=== PATIENT | male | born 1990 | race Caucasian/White ===

== ENCOUNTER → 2019-08-22 12:26 | Outpatient (BNVA) | payer BC, SELFPAY | PROVIDERS: Visit Provider Nurse Practitioner | DX: Z13.6 Encounter for screening for cardiovascular disorders (principal); R07.81 Pleurodynia; I51.7 Cardiomegaly | CPT/HCPCS: 71101; 80053; 80061; 81003; 85025 ==

== ENCOUNTER 2022-03-18 08:28 | Outpatient (CLI) | payer BC, SELFPAY ==
[2022-03-18 09:14] LABS: Basophils # 0.1 10^3/uL (0.0-0.1); Eosinophils # 0.2 10^3/uL (0.0-0.8); Eosinophils % 2.3 %; Hematocrit 46.5 % (42.0-52.0); Hemoglobin 15.3 g/dL (11.7-16.6); Lymphocytes # 2.7 10^3/uL (0.8-4.8); Lymphocytes % 26.9 %; Mean Corpuscular HGB Conc 32.9 g/dL (30.0-36.0); Mean Corpuscular Hemoglobin 28.3 pg (28.0-34.0); Mean Platelet Volume 9.1 fL (7.4-10.4); Monocytes # 0.7 10^3/uL (0.2-0.9); Neutrophils # 6.11 10^3/uL (1.8-7.7); Neutrophils % 61.9 %; Nucleated Red Blood Cells % 0 %; Platelet Count 325 10^3/cmm (130-400); Red Blood Count 5.41 10^6/uL (4.1-5.3); White Blood Count 9.9 10^3/uL (4.0-10.0)
[2022-03-18 10:01] LABS: Alanine Aminotransferase 31 U/L (0-41); Albumin Level 4.5 g/dL (3.5-5.2); Alkaline Phosphatase 91 U/L (40-130); Anion Gap 16.5 (5-19); Aspartate Amino Transferase 18 U/L (0-40); Blood Urea Nitrogen 14 mg/dL (6-20); Calcium 9.5 mg/dL (8.5-10.5); Carbon Dioxide 23 mmol/L (22-29); Chloride 102 mmol/L (98-107); Chol HDL Ratio 4.03 mg/dL (1.0-5.00); Cholesterol 149 mg/dL (0-200); Globulin 2.5 g/dL (1.3-4.6); Glomerular Filtration Rate 157.1 mL/min (90-130); Glucose 99 mg/dL (65-115); HDL Cholesterol 37 mg/dL (60-100); LDL Cholesterol Calculated 60 mg/dL (50-129); LDL HDL Ratio 1.62 RATIO (0.00-3.22); Osmolality Calculated 285 mOsm/kg (285-295); Potassium 4.5 mmol/L (3.5-5.1); Sodium 137 mmol/L (136-145); Thyroid Stimulating Hormone 1.38 uIU/mL (0.27-4.20); Total Bilirubin 0.3 mg/dL (0.15-1.2); Triglycerides 261 mg/dL (0-150)
== END 2022-03-18 08:29 | disposition home or self-care (01) ==
LOC: LAB 08:31
PROVIDERS: Visit Provider Family Medicine
DX: I10 Essential (primary) hypertension (principal); F17.228 Nicotine dependence, chewing tobacco, with other nicotine-induced disorders; Z76.89 Persons encountering health services in other specified circumstances; E66.01 Morbid (severe) obesity due to excess calories
CPT/HCPCS: 36415; 80053; 80061; 84443; 85025

== ENCOUNTER → 2023-12-20 17:39 | Outpatient (BNVA) | payer SELFPAY | PROVIDERS: PCP Family Medicine; Visit Provider Emergency Medicine | DX: S99.911A Unspecified injury of right ankle, initial encounter (principal); X58.XXXA Exposure to other specified factors, initial encounter | CPT/HCPCS: 73610 ==

== ENCOUNTER 2024-03-30 14:14 | Inpatient (IN) | payer OTHER, SELFPAY ==
[2024-03-30] VITALS (14 sets, daily range): BP systolic 92–139; BP diastolic 45–84; PULSE 88–114; RESP 18–33; TEMP 36.6–38.1; O2SAT 90–98; BMI 46.7
[2024-03-30 14:49] LABS: Basophils # 0.1 10^3/uL (0.0-0.1); Basophils % 0.5 %; Eosinophils # 0.2 10^3/uL (0.0-0.8); Hematocrit 41.4 % (37-53); Lymphocytes # 2.2 10^3/uL (0.8-4.8); Lymphocytes % 10.4 %; Mean Corpuscular HGB Conc 32.6 g/dL (30-55); Mean Corpuscular Volume 85.7 fl (82-101); Mean Platelet Volume 8.5 fL (7.4-10.4); Monocytes # 1.7 10^3/uL (0.2-0.9); Monocytes % 8.3 %; Neutrophils % 79.3 %; Nucleated Red Blood Cells % 0 %; Platelet Count 293 10^3/cmm (157-399); Red Blood Count 4.83 10^6/uL (3.85-5.65); White Blood Count 20.77 10^3/uL (3.29-11.43)
[2024-03-30 15:07] LABS: Alanine Aminotransferase 17 U/L (0-41); Albumin Level 3.9 g/dL (3.5-5.2); Alkaline Phosphatase 68 U/L (40-130); Anion Gap 17.1 (5-19); Aspartate Amino Transferase 9 U/L (0-40); Blood Urea Nitrogen 12 mg/dL (6-20); Calcium 8.8 mg/dL (8.5-10.5); Carbon Dioxide 21 mmol/L (22-29); Chloride 99 mmol/L (98-107); Globulin 3.6 g/dL (1.3-4.6); Glomerular Filtration Rate 129.9 mL/min (90-130); Glucose 108 mg/dL (65-115); Osmolality Calculated 276 mOsm/kg (285-295); Potassium 4.1 mmol/L (3.5-5.1); Sodium 133 mmol/L (136-145); Total Bilirubin 0.8 mg/dL (0.15-1.2); Total Protein 7.5 g/dL (6.6-8.7)
--- NOTE | 2024-03-30 15:51 | CTR_ITS ---
PROCEDURE INFORMATION: Exam: CT Abdomen And Pelvis With Contrast Exam date and time: 03/30/2024 4:09 PM Age: 34 years old Clinical indication: Pain; Other: Buttock/perirectal abscess TECHNIQUE: Imaging protocol: Computed tomography of the abdomen and pelvis with contrast. Radiation optimization: All CT scans at this facility use at least one of these dose optimization techniques: automated exposure control; mA and/or kV adjustment per patient size (includes targeted exams where dose is matched to clinical indication); or iterative reconstruction. Contrast material: OMNI 350; Contrast volume: 100 ml; Contrast route: INTRAVENOUS (IV); COMPARISON: CR XR ribs LT mn 3V w CXR1V [id number] 08/22/2019 12:46 PM RADIATION DOSE METRICS: Total DLP (mGy-cm): 1546.13 FINDINGS: Lungs: Lung bases are clear. No pleural effusion. Liver: The liver demonstrates diffuse fatty infiltration. No evidence of liver mass. Gallbladder and biliary ducts: Normal. No calcified stones. No ductal dilation. Pancreas: Normal. No ductal dilation. Spleen: Normal. No splenomegaly. Adrenal glands: Normal. No mass. Kidneys and ureters: Normal. No hydronephrosis. Stomach and bowel: Unremarkable. No obstruction. No mucosal thickening. Appendix: No evidence of appendicitis. Intraperitoneal space: See Soft tissues finding. Vasculature: Unremarkable. No abdominal aortic aneurysm. Lymph nodes: Unremarkable. No enlarged lymph nodes. Urinary bladder: Unremarkable as visualized. Reproductive: Unremarkable as visualized. Bones/joints: Unremarkable. No acute fracture. Soft tissues: There is a 5 cm diameter rounded abscess lying just below the level of the anus within the medial aspect of the left buttock. There is surrounding cellulitis. The abscess contains air and fluid. The abscess does not extend into the pelvic cavity. CT/CT abdomen pelvis w con* [id number] IMPRESSION: 5 cm left perianal abscess with surrounding cellulitis
--- NOTE | 2024-03-30 15:53 | W.ED.SKABFB ---
HPI - Skin/Abscess/Foreign Bdy General: Chief complaint: Skin/Abscess/Foreign Body Stated complaint: Walk-In--Possible absess in rectal area Time Seen by Provider: 03/30/24 15:36 Source: patient Mode of arrival: ambulatory Limitations: no limitations History of Present Illness: Patient is a 34-year-old male here after he was evaluated [facility] walk-in clinic and referred to the emergency department for evaluation of an infection/abscess to his buttock/perineal region. Patient states he began having pain approximately 2 to 3 days ago. He states bowel movements are painful. He is not having any systemic symptoms such as fevers, chills, body aches, or vomiting. He does arrive slightly tachycardic and febrile with a fever of 100.6. He is not a diabetic. Patient is morbidly obese with BMI of 46.8. MD complaint: abscess/boil Onset (ago): day(s) Tetanus up to date: yes Location: buttocks and genitals Severity: moderate Pain Consistency: constant Relieving factors: none Exacerbating factors: none Context: none Associated symptoms: Deny chills, fever(s), nausea or vomiting Treatments prior to arrival: none Related Data Home Medications Medication Instructions Recorded Confirmed escitalopram oxalate 10 mg tablet 10 mg PO DAILY 03/30/24 03/30/24 lisinopril 10 1 tab PO DAILY 03/30/24 03/30/24 mg-hydrochlorothiazide 12.5 mg tablet Allergies Allergy/AdvReac Type Severity Reaction Status Date / Time No Known Allergies Allergy Verified 03/30/24 15:21 Review of Systems Const: Denies: fever(s), chills, body aches, fatigue or malaise Card: Denies: chest pain Resp: Denies: dyspnea GI: Reports: pain on defecation and rectal pain; Denies: abdominal pain, nausea, vomiting, diarrhea, hematochezia or melena : Denies: flank pain, difficulty urinating, dysuria, urinary frequency, urinary urgency or urinary hesitancy Musc: Denies: neck pain, back pain, extremity pain or joint pain Skin/Breast: Denies: rash Neuro: Denies: headache(s), numbness in extremities, weakness in extremities or sensory changes [facility] 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 Mother Diabetes Denies family history of CAD (coronary artery disease) Clotting disorder Dementia Hyperlipidemia Psychiatric illness Chronic kidney disease (CKD) Suicide Anesthesia complication Bleeding disorder Family history of premature coronary artery disease Lung disease Cancer Hypertension Stroke Social History Smoking and tobacco/nicotine status: unknown if used tobacco/nicotine Second hand smoke exposure: No Alcohol intake: current Alcohol intake frequency: holidays/special occasions only Substance/Drug Use: never Adopted: No Caregiver/support person: No Lives independently: Yes Household members: other Details: [place] Housing: House Marital status: Single Number of children: 1 Highest education level completed: High School Graduate service: No Current occupational status: employed Current occupation: [employer] Current occupational exposures/hazards: No Pets and animals: Yes Leisure activites: hunting and fishing Sexually active: Yes Do you think of yourself as: Straight/Heterosexual Current gender identity: Male Special avila needs: No Agree to transfusion: Yes Physical Exam Const: COMMON NORMALS: no acute distress, patient oriented x3, no limitations, alert and well nourished GENERAL APPEARANCE: cooperative NUTRITIONAL APPEARANCE: obese morbidly obese (BMI 46.8) ORIENTATION/CONSCIOUSNESS: Yes awake, Yes oriented to person, Yes oriented to place and Yes oriented to time Resp: COMMON NORMALS: normal respiratory effort and clear to auscultation bilaterally AUSCULTATION: clear to auscultation bilaterally Cardio: COMMON NORMALS: regular rate and regular rhythm RATE: regular rate RHYTHM: regular rhythm GI: COMMON NORMALS: Normal to inspection, nondistended, normoactive bowel sounds present, Soft to palpation and non-tender PALPATION: Yes Soft to palpation OTHER: patient with a large amount of edema/induration and probable abscess formation along L buttock/gluteal cleft; he did have a small seed tick attached to this area that was removed; small amount of hemorrhage (dime sized) were abscess turns fluctuant; he does not have symptoms onto scrotum or any scrotal involvement : COMMON NORMALS: Yes no CVA tenderness BLADDER/KIDNEY EXAM: Yes no CVA tenderness Back/Pelvis: COMMON NORMALS: no CVA tenderness and thoracic and lumbar spine normal to inspection Extremity: GENERAL: Yes normal exam except as noted Neuro: COMMON NORMALS: patient oriented x3, moves all extremities, no focal motor deficits, no sensory deficits noted and gait normal SENSORIUM/ORIENTATION: Yes alert, Yes oriented to person, Yes oriented to place and Yes oriented to time Skin: NARRATIVE SKIN EXAM: see above Course Vital Signs: Vital signs: Vital Signs Temperature 100.6 F H 03/30/24 15:15 Pulse Rate 106 H 03/30/24 15:15 Respiratory Rate 18 03/30/24 16:30 Blood Pressure 129/64 03/30/24 15:15 Pulse Oximetry 94 03/30/24 15:15 Oxygen Delivery Me thod Room Air 03/30/24 15:15 MDM - Skin/Abscess/Foreign Bdy Medicial Decision Making Patient is a nice 34-year-old male here for a 5 cm left perianal abscess. He is mildly tachycardic and febrile with a white count of 20.7. He has a normal lactate. CRP is 143. Blood cultures obtained and he was started on IV Zosyn as well as a IBW fluid bolus. I have spoken to Dr. Hernandez who will admit for drainage/continued antibiotics. Medical Records I reviewed the patient's medical records. Lab Data I reviewed the patient's lab results. 03/30/24 14:41 03/30/24 14:41 Radiology Impressions Abdomen/Pelvis CT 03/30/24 15:51 IMPRESSION: 5 cm left perianal abscess with surrounding cellulitis Laboratory Results WBC 20.77 10^3/uL (3.29-11.43) H 03/30/24 14:41 RBC 4.83 10^6/uL (3.85-5.65) 03/30/24 14:41 Hgb 13.50 g/dL (11.27-16.99) 03/30/24 14:41 Hct 41.4 % (37-53) 03/30/24 14:41 MCV 85.7 fl (82-101) 03/30/24 14:41 MCH 28.0 pg (27-33) 03/30/24 14:41 MCHC 32.6 g/dL (30-55) 03/30/24 14:41 RDW 14.0 % (12.1-15.1) 03/30/24 14:41 Plt Count 293 10^3/cmm (157-399) 03/30/24 14:41 MPV 8.5 fL (7.4-10.4) 03/30/24 14:41 Neut % (Auto) 79.3 % 03/30/24 14:41 Lymph % (Auto) 10.4 % 03/30/24 14:41 [place] % (Auto) 8.3 % 03/30/24 14:41 Eos % (Auto) 1.0 % 03/30/24 14:41 Baso % (Auto) 0.5 % 03/30/24 14:41 Neut # (Auto) 16.50 10^3/uL (1.8-7.7) H 03/30/24 14:41 Lymph # (Auto) 2.2 10^3/uL (0.8-4.8) 03/30/24 14:41 [place] # (Auto) 1.7 10^3/uL (0.2-0.9) H 03/30/24 14:41 Eos # (Auto) 0.2 10^3/uL (0.0-0.8) 03/30/24 14:41 Baso # (Auto) 0.1 10^3/uL (0.0-0.1) 03/30/24 14:41 Nucleated RBC % (auto) 0 % 03/30/24 14:41 Nucleated RBCs # 0.0 /100WBC 03/30/24 14:41 Sodium 133 mmol/L (136-145) L 03/30/24 14:41 Potassium 4.1 mmol/L (3.5-5.1) 03/30/24 14:41 Chloride 99 mmol/L (98-107) 03/30/24 14:41 Carbon Dioxide 21 mmol/L (22-29) L 03/30/24 14:41 Anion Gap 17.1 (5-19) 03/30/24 14:41 BUN 12 mg/dL (6-20) 03/30/24 14:41 Creatinine 0.7 mg/dL (0.7-1.2) 03/30/24 14:41 GFR Calculation 129.9 mL/min (90-130) 03/30/24 14:41 Glucose 108 mg/dL (65-115) 03/30/24 14:41 Calculated Osmolality 276 mOsm/kg (285-295) L 03/30/24 14:41 Lactic Acid 0.8 mmol/L (0.5-2.2) 03/30/24 14:41 Calcium 8.8 mg/dL (8.5-10.5) 03/30/24 14:41 Total Bilirubin 0.8 mg/dL (0.15-1.2) 03/30/24 14:41 AST 9 U/L (0-40) 03/30/24 14:41 ALT 17 U/L (0-41) 03/30/24 14:41 Alkaline Phosphatase 68 U/L (40-130) 03/30/24 14:41 C-Reactive Protein 143.0 mg/L (0.0-4.9) H 03/30/24 14:41 Total Protein 7.5 g/dL (6.6-8.7) 03/30/24 14:41 Albumin 3.9 g/dL (3.5-5.2) 03/30/24 14:41 Globulin 3.6 g/dL (1.3-4.6) 03/30/24 14:41 All radiology interpretation(s) finalized by discharge Discharge Plan Discharge Patient Disposition: Admitted As Inpatient Clinical Impression: Abscess, perianal Condition: Stable Prescriptions: No Action lisinopril-hydrochlorothiazide 10-12.5 mg tablet 1 tab PO DAILY escitalopram oxalate 10 mg tablet 10 mg PO DAILY Referrals: [facility] [Other] Geronimo Razo DO [Primary Care Provider] - Coding Level of Care Code ED Product Development Ecologist for Lissy Hutson
[2024-03-30 16:19] LABS: Lactic Sepsis W/Reflex 0.8 mmol/L (0.5-2.2)
[2024-03-30] MEDS: morphine 4 mg/mL SDV 1 mL IVP (16:30)
[2024-03-30] MEDS: sodium chloride 0.9% 2,328 ML 2328 ML IV (16:30)
[2024-03-30] MEDS: ondansetron 2 mg/ML SDV 2 mL 4 MG IVP (16:31)
[2024-03-30] MEDS: piperacillin-tazobactam 3.375 GM in sodium chloride 0.9% (plus) 50 ML IV (16:43)
[2024-03-30] MEDS: lactated ringers 1,000 ML 75 ML IV (18:39)
[2024-03-30] MEDS: fentaNYL 50 mcg/mL INJ 2mL IVP (19:17)
[2024-03-30 19:19] LABS: Charge for UA Resulting for Rev
[2024-03-30 19:43] LABS: Bilirubin Urine Negative (Negative); Blood Urine Negative (Negative); Glucose Urine UA Negative (Normal); Ketones Urine Negative (Negative); Leukocyte Esterase Urine Negative (Negative); Nitrate Urine Negative (Negative); Protein Urine Trace (Negative); Urine Appearance Clear (CLEAR); Urine Color Yellow (Yellow)
[2024-03-30 19:48] LABS: Bacteria Urine None Seen /hpf; Hyaline Casts Urine 0-4 /lpf; RBC Urine 0-2 /hpf (0-2); Squamous Epithelial Cell Urine 0-5 /hpf (0-5); WBC Urine 0-5 /hpf (0-5)
--- NOTE | 2024-03-30 19:55 | P.HP_ITS ---
Providers/Chief Complaint 2 Admitting Physician: North Ling MD Primary Care Provider: Geronimo Razo DO Chief Complaint: Walk-In--Possible absess in rectal area History of Present Illness Isak Peters is a 34 year old male relatively healthy, obese, who presents with a perianal abscess. CT scan demonstrated a 5 cm abscess with locules of air in the subcutaneous tissues. Patient denies any fevers. He noticed the abscess several days ago. This is the first episode. Denies any prior GI issues. Patient was initially tachycardic and had a leukocytosis greater than 20,000. He did respond to IV fluid resuscitation. Antibiotics were started. 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 Mother Diabetes Denies family history of CAD (coronary artery disease) Clotting disorder Dementia Hyperlipidemia Psychiatric illness Chronic kidney disease (CKD) Suicide Anesthesia complication Bleeding disorder Family history of premature coronary artery disease Lung disease Cancer Hypertension Stroke Social History Smoking and tobacco/nicotine status: unknown if used tobacco/nicotine Second hand smoke exposure: No Alcohol intake: current Alcohol intake frequency: holidays/special occasions only Substance/Drug Use: never Adopted: No Caregiver/support person: No Lives independently: Yes Household members: other Details: fiancee Housing: House Marital status: Single Number of children: 1 Highest education level completed: High School Graduate service: No Current occupational status: employed Current occupation: [employer] Current occupational exposures/hazards: No Pets and animals: Yes Leisure activites: hunting and fishing Sexually active: Yes Do you think of yourself as: Straight/Heterosexual Current gender identity: Male Special avila needs: No Agree to transfusion: Yes Vitals/I&O/Wt Last Vital Signs Temp 100.3 F H 03/30/24 19:15 Pulse 88 03/30/24 19:15 Resp 18 03/30/24 19:17 BP 139/74 03/30/24 19:15 Pulse Ox 98 03/30/24 19:17 O2 Del Method Nasal Cannula 03/30/24 19:15 O2 Flow Rate 3 03/30/24 19:15 03/30/24 03/30/24 03/30/24 06:59 14:59 22:59 Intake Total 50 / 50 Balance 50 / 50 Weight last 48 hrs Weight 345 lb Physical Exam 2 Narrative: Chest: Unlabored breathing room air. No lymphadenopathy. Heart: Regular rate and rhythm. Abdomen: Soft, nontender, nondistended. No masses or lymphadenopathy. Perineum: perianal abscess with surrounding cellulitis Data 03/30/24 14:41 03/30/24 14:41 Micro: Microbiology 03/30/24 17:01 Blood Culture - Preliminary Blood SPECIMEN COLLECTED 03/30/24 16:52 Blood Culture - Preliminary Blood SPECIMEN COLLECTED A&P Assessment and plan (1) Abscess, perianal: Plan 34-year-old male who presents with a perianal abscess. I have explained the risks and benefits of an exam under anesthesia of the rectum, incision and drainage of perianal abscess, possible seton placement, possible fistulotomy. He agrees to proceed. Will then sent to the floor for continued resuscitation and antibiotics. Attestations 2 Medical Necessity Statement*: Treatment undergoing for perianal abscess Coding Level of Care Code 26281 Diagnoses Abscess, perianal K61.0 Time Spent (min) 30
[2024-03-30 19:57] LABS: Specific Gravity, Urine 1.047 (1.005-1.030)
--- NOTE | 2024-03-30 21:04 | W.PM.BPON ---
Date of Procedure: 03/30/24 Surgeon: North Ling MD Separations Scientist(s): None Procedure(s) performed: Exam under anesthesia of the rectum and perineum. Incision and drainage of perianal abscess. Findings of the procedure(s): Perianal abscess 5 cm cavity. Estimated blood loss: Less than 10 cc. Specimen(s) removed: Ultrasound from perianal abscess Post-operative diagnosis: Perianal abscess
--- NOTE | 2024-03-30 21:06 | ANES.PREANE2 ---
Pre-Anesthetic Assessment Height/Weight: Height 1.83 m Weight 156.489 kg Temp Pulse Resp BP Pulse Ox O2 Del Method O2 Flow Rate 100.3 F H 88 18 139/74 98 Nasal Cannula 3 03/30/24 19:15 03/30/24 19:15 03/30/24 19:17 03/30/24 19:15 03/30/24 19:17 03/30/24 19:15 03/30/24 19:15 Operation Date: 03/30/24 19:00 Proposed Procedures p Perirectal Abscess(Not Applicable) - North Ling MD Social No alcohol and No tobacco Exam alert, oriented x 3, clear to auscultation bilaterally and regular rate & rhythm Airway Submandibular: within normal limits Cervical ROM: Other (limited by cervical girth ) Mallampati: Class II Pulmonary Sleep Apnea Metabolic Morbid Obesity Anesthetic Plan ASA status: 4E Anesthesia: General Medications/Allergies Home Medications Medication Instructions Recorded Confirmed Last Taken Type escitalopram oxalate 10 mg tablet 10 mg PO DAILY 03/30/24 03/30/24 Unknown History lisinopril 10 1 tab PO DAILY 03/30/24 03/30/24 Unknown History mg-hydrochlorothiazide 12.5 mg tablet Allergies Allergy/AdvReac Type Severity Reaction Status Date / Time No Known Allergies Allergy Verified 03/30/24 15:21 Current Medications Generic Name Dose Route Start Last Admin Trade Name Freq PRN Reason Stop Dose Admin Lactated Ringer's 1,000 mls @ 75 mls/hr 03/30/24 17:30 03/30/24 18:39 Lactated Ringers IV 75 mls/hr .[id number] CHAN Administration PFSH 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 Mother Diabetes Denies family history of CAD (coronary artery disease) Clotting disorder Dementia Hyperlipidemia Psychiatric illness Chronic kidney disease (CKD) Suicide Anesthesia complication Bleeding disorder Family history of premature coronary artery disease Lung disease Cancer Hypertension Stroke Social History Smoking and tobacco/nicotine status: unknown if used tobacco/nicotine Second hand smoke exposure: No Alcohol intake: current Alcohol intake frequency: holidays/special occasions only Substance/Drug Use: never Adopted: No Caregiver/support person: No Lives independently: Yes Household members: other Details: ebenezer Housing: House Marital status: Single Number of children: 1 Highest education level completed: High School Graduate service: No Current occupational status: employed Current occupation: [employer] Current occupational exposures/hazards: No Pets and animals: Yes Leisure activites: hunting and fishing Sexually active: Yes Do you think of yourself as: Straight/Heterosexual Current gender identity: Male Special avila needs: No Agree to transfusion: Yes Data Anesthesia 03/30/24 14:41 03/30/24 14:41 Short CBC 03/30/24 Range/Units 14:41 WBC 20.77 H (3.29-11.43) 10^3/uL Hgb 13.50 (11.27-16.99) g/dL Hct 41.4 (37-53) % MCV 85.7 (82-101) fl Plt Count 293 (157-399) 10^3/cmm Neut % (Auto) 79.3 % Neut # (Auto) 16.50 H (1.8-7.7) 10^3/uL BMP 03/30/24 14:41 Sodium 133 L Potassium 4.1 Chloride 99 Carbon Dioxide 21 L BUN 12 Creatinine 0.7 Glucose 108 Calcium 8.8 Liver Function 03/30/24 Range/Units 14:41 Total Bilirubin 0.8 (0.15-1.2) mg/dL AST 9 (0-40) U/L ALT 17 (0-41) U/L Alkaline Phosphatase 68 (40-130) U/L Albumin 3.9 (3.5-5.2) g/dL Urine 03/30/24 Range/Units 17:46 Urine Color Yellow (Yellow) Urine Appearance Clear (CLEAR) Urine pH 6.0 (5-7) Ur Specific [place] 1.047 H (1.005-1.030) Urine Protein Trace A (Negative) Urine Glucose (UA) Negative (Normal) Urine Ketones Negative (Negative) Urine Nitrate Negative (Negative) Urine Bilirubin Negative (Negative) Ur Leukocyte Esterase Negative (Negative) Urine RBC 0-2 (0-2) /hpf Urine WBC 0-5 (0-5) /hpf Coags 03/30/24 14:41 C-Reactive Protein 143.0 H Microbiology 03/30/24 17:01 Blood Culture - Preliminary Blood SPECIMEN COLLECTED 03/30/24 16:52 Blood Culture - Preliminary Blood SPECIMEN COLLECTED Cardiac Studies: No Data to Display
[2024-03-31] VITALS (9 sets, daily range): BP systolic 100–172; BP diastolic 51–72; PULSE 74–100; RESP 18–20; TEMP 36.7–36.9; O2SAT 90–96; BMI 45.7
[2024-03-31] MEDS: piperacillin-tazobactam 4.5 GM in sodium chloride 0.9% (plus) 50 ML IV ×3 (01:03→16:52)
[2024-03-31 08:13] LABS: Basophils % 0.1 %; Hematocrit 39.8 % (37-53); Lymphocytes % 4.8 %; Mean Corpuscular HGB Conc 31.7 g/dL (30-55); Mean Corpuscular Volume 88.4 fl (82-101); Mean Platelet Volume 8.7 fL (7.4-10.4); Monocytes # 0.7 10^3/uL (0.2-0.9); Monocytes % 3.2 %; Neutrophils # 18.69 10^3/uL (1.8-7.7); Neutrophils % 91.3 %; Nucleated Red Blood Cells % 0 %; Platelet Count 271 10^3/cmm (157-399); White Blood Count 20.49 10^3/uL (3.29-11.43)
[2024-03-31 08:34] LABS: Anion Gap 15.4 (5-19); Blood Urea Nitrogen 15 mg/dL (6-20); Calcium 8.3 mg/dL (8.5-10.5); Carbon Dioxide 22 mmol/L (22-29); Chloride 102 mmol/L (98-107); Glomerular Filtration Rate 155.2 mL/min (90-130); Glucose 170 mg/dL (65-115); Osmolality Calculated 285 mOsm/kg (285-295); Potassium 4.4 mmol/L (3.5-5.1); Sodium 135 mmol/L (136-145)
[2024-03-31 09:03] LABS: Creatinine Clr Calc Pharmacy 265.9584
[2024-03-31] MEDS: oxyCODONE 5 mg IR Tab/Cap PO ×2 (09:03→21:31)
--- NOTE | 2024-03-31 12:17 | ANE.PACU2 ---
Inpatient post-anesthesia follow up: Airway intact: Yes Vital signs: Temperature 98.1 F Pulse Rate 79 Respiratory Rate 18 Blood Pressure 172/71 Pulse Oximetry 96 Oxygen Delivery Me thod Room Air Oxygen Flow Rate 4 Fraction of Inspir ed Oxygen Hydration adequate: Yes Nausea and vomiting: No Pain level: controlled Mental status: Baseline (appropriate for post anesthesia )
--- NOTE | 2024-03-31 12:32 | P.PN_ITS ---
Subjective 2 Subjective: Feels much better. No fevers. Pain has decreased significantly. Able to lie on his back. Vitals/I&O/Wt Last Vital Signs Temp 98.1 F 03/31/24 12:00 Pulse 79 03/31/24 12:00 Resp 18 03/31/24 12:00 BP 172/71 03/31/24 12:00 Pulse Ox 96 03/31/24 12:00 O2 Del Method Room Air 03/31/24 12:00 O2 Flow Rate 4 03/30/24 21:46 03/30/24 03/31/24 03/31/24 22:59 06:59 14:59 Intake Total 2478 / 2478 50 / 2528 360 / 360 Output Total Balance 2458 / 2458 50 / 2508 360 / 360 Weight last 48 hrs Weight 335 lb 3.2 oz Weight 337 lb 1.6 oz Weight 345 lb Physical Exam 2 Narrative: Chest: Unlabored breathing room air. No lymphadenopathy. Heart: Regular rate and rhythm. Abdomen: Soft, nontender, nondistended. No masses or lymphadenopathy. Perineum: left buttock with packing in place. Changed. No purulence. Re-packed. Cellulitis improved. Data 03/31/24 08:06 03/31/24 08:06 Micro: Microbiology 03/30/24 20:55 Gram Stain - Final Other Source 03/30/24 17:01 Blood Culture - Preliminary Blood SPECIMEN COLLECTED 03/30/24 16:52 Blood Culture - Preliminary Blood SPECIMEN COLLECTED A&P Assessment and plan (1) Abscess, perianal: Plan 34-year-old male who presented with a perianal abscess. Postoperative day 1 from incision and drainage and rectal exam under anesthesia. Packing was changed today. I will change it tomorrow. Given his leukocytosis, size of the cavity, and moderate pain control we will aim for discharge on Tuesday. Attestations 2 Medical Necessity Statement*: Perianal abscess with persistent leukocytosis. Pain control is an issue. Wound care needs to be done by physician one more day. Coding Level of Care Code 41903 Diagnoses Abscess, perianal K61.0 Time Spent (min) 30
[2024-03-31] MEDS: ESCITALOPRAM 10 MG TAB 1 EACH PO (12:55)
--- NOTE | 2024-03-31 16:00 | PC.NURSE ---
dr grewal changed drsg to perirectal absess this morning.requested that he change the drsgs-not staff-if possible
[2024-04-01] VITALS: BP 149/71; PULSE 101; RESP 20; TEMP 36.5; O2SAT 93
[2024-04-01] MEDS: piperacillin-tazobactam 4.5 GM in sodium chloride 0.9% (plus) 50 ML IV ×2 (01:58→09:03)
[2024-04-01 04:00] VITALS: BP 119/58; PULSE 76; RESP 20; TEMP 36.7; O2SAT 95
[2024-04-01 07:14] VITALS: BP 146/65; PULSE 65; RESP 17; TEMP 36.4; O2SAT 95
[2024-04-01] MEDS: LISINOPRIL PO (09:02)
[2024-04-01] MEDS: HCTZ PO (09:02)
[2024-04-01] MEDS: ESCITALOPRAM 10 MG TAB 1 EACH PO (09:02)
[2024-04-01 09:53] LABS: Basophils # 0.1 10^3/uL (0.0-0.1); Basophils % 0.5 %; Eosinophils # 0.2 10^3/uL (0.0-0.8); Hematocrit 39.8 % (37-53); Lymphocytes % 17.6 %; Mean Corpuscular HGB Conc 32.2 g/dL (30-55); Mean Corpuscular Hemoglobin 28.2 pg (27-33); Mean Corpuscular Volume 87.7 fl (82-101); Mean Platelet Volume 8.8 fL (7.4-10.4); Monocytes # 1.1 10^3/uL (0.2-0.9); Monocytes % 6.2 %; Neutrophils # 12.47 10^3/uL (1.8-7.7); Neutrophils % 73.9 %; Nucleated Red Blood Cells % 0 %; Platelet Count 312 10^3/cmm (157-399); Red Blood Count 4.54 10^6/uL (3.85-5.65); Red Cell Distribution Width 13.8 % (12.1-15.1); White Blood Count 16.88 10^3/uL (3.29-11.43)
[2024-04-01 11:16] VITALS: BP 144/75; PULSE 84; RESP 18; TEMP 37; O2SAT 95
[2024-04-01] MEDS: oxyCODONE 5 mg IR Tab/Cap PO (11:16)
--- NOTE | 2024-04-01 12:11 | P.PN_ITS ---
Subjective 2 Subjective: Pain much better controlled No fevers Packing changed WBC down Vitals/I&O/Wt Last Vital Signs Temp 98.6 F 04/01/24 11:16 Pulse 84 04/01/24 11:16 Resp 18 04/01/24 11:16 BP 144/75 04/01/24 11:16 Pulse Ox 95 04/01/24 11:16 O2 Del Method Room Air 04/01/24 11:16 O2 Flow Rate 4 03/30/24 21:46 03/31/24 04/01/24 04/01/24 22:59 06:59 14:59 Intake Total 1050 / 1820 50 / 1870 480 / 480 Balance 1050 / 1820 50 / 1870 480 / 480 Weight last 48 hrs Weight 338 lb 3.2 oz Weight 335 lb 3.2 oz Weight 337 lb 1.6 oz Weight 345 lb Physical Exam 2 Narrative: Chest: Unlabored breathing room air. No lymphadenopathy. Heart: Regular rate and rhythm. Abdomen: Soft, nontender, nondistended. No masses or lymphadenopathy. Perineum: perianal I&D cavity decreased in size. Packing changed. Surrounding cellulitis improved Data 04/01/24 09:47 03/31/24 08:06 Micro: Microbiology 03/30/24 17:01 Blood Culture - Preliminary Blood NEGATIVE TO DATE 03/30/24 16:52 Blood Culture - Preliminary Blood NEGATIVE TO DATE 03/30/24 20:55 Gram Stain - Final Other Source A&P Assessment and plan (1) Abscess, perianal: Plan 34-year-old male status post exam under anesthesia of the rectum and perineum, incision and drainage of perianal abscess. White count is down, no fevers, pain is well-tolerated. Patient feels ready to go home. I have changed the packing today. I will discharge him on a short course of antibiotics to treat his cellulitis, patient should remove the packing tomorrow and he does not need to replace it. I have instructed him to do sitz bath's daily and follow-up with me in clinic in 2 weeks. Patient can take [id number] meds for pain control. Attestations 2 Medical Necessity Statement*: perianal abscess treatment Coding Level of Care Code 56048 Diagnoses Abscess, perianal K61.0 Time Spent (min) 30
--- NOTE | 2024-04-01 12:15 | PM.DCS ---
Discharge Providers Date of Admission: 03/30/24 16:56 Date of Discharge: April 01, 2024 Attending Provider at Admission: North Ling MD Attending Provider at Discharge: North Ling MD Primary Care Provider: Geronimo Razo DO Diagnoses at Discharge Discharge Diagnosis (1) Abscess, perianal: Details from hospital stay: 34-year-old male who underwent an exam under anesthesia of the perineum and rectum, incision and drainage of perianal abscess. Patient required postoperative hospital stay for pain control, wound care, IV antibiotics. Currently stable for discharge. Patient instructed to do daily sitz bath's, finish a 5-day course of antibiotics to treat for cellulitis. And follow-up in general surgery clinic in 2 weeks. Status: Acute Reason for Visit Reason for Visit: Walk-In--Possible absess in rectal area Brief History: Incision and drainage of perianal abscess Hospital Course Hospital Course This patient came in with a perianal abscess. Required an exam under anesthesia of the rectum and perineum, incision and drainage of perianal abscess. Patient stayed in the hospital 2 nights for pain control, IV antibiotics, wound care. Physical Exam Narrative: Chest: Unlabored breathing room air. No lymphadenopathy. Heart: Regular rate and rhythm. Abdomen: Soft, nontender, nondistended. No masses or lymphadenopathy. Perineum: perianal abscess cavity was drained, cavity decreased in size, surrounding cellulitis improved Discharge Data Studies Completed and Pending Completed Studies During Hospitalization Category Date Time Status CT abdomen pelvis w con* [id number] Stat Cat Scan 03/30/24 15:51 Completed Pending at discharge Category Date Time Status Anaerobic Culture Routine Lab 03/30/24 20:55 Results Blood Culture Stat Lab 03/30/24 17:01 Results Wound Culture and Gram Stain Routine Lab 03/30/24 20:55 Results Radiology Impressions Abdomen/Pelvis CT 03/30/24 15:51 IMPRESSION: 5 cm left perianal abscess with surrounding cellulitis Laboratory Results WBC 16.88 10^3/uL (3.29-11.43) H 04/01/24 09:47 RBC 4.54 10^6/uL (3.85-5.65) 04/01/24 09:47 Hgb 12.80 g/dL (11.27-16.99) 04/01/24 09:47 Hct 39.8 % (37-53) 04/01/24 09:47 MCV 87.7 fl (82-101) 04/01/24 09:47 MCH 28.2 pg (27-33) 04/01/24 09:47 MCHC 32.2 g/dL (30-55) 04/01/24 09:47 RDW 13.8 % (12.1-15.1) 04/01/24 09:47 Plt Count 312 10^3/cmm (157-399) 04/01/24 09:47 MPV 8.8 fL (7.4-10.4) 04/01/24 09:47 Neut % (Auto) 73.9 % 04/01/24 09:47 Lymph % (Auto) 17.6 % 04/01/24 09:47 [place] % (Auto) 6.2 % 04/01/24 09:47 Eos % (Auto) 1.0 % 04/01/24 09:47 Baso % (Auto) 0.5 % 04/01/24 09:47 Neut # (Auto) 12.47 10^3/uL (1.8-7.7) H 04/01/24 09:47 Lymph # (Auto) 3.0 10^3/uL (0.8-4.8) 04/01/24 09:47 [place] # (Auto) 1.1 10^3/uL (0.2-0.9) H 04/01/24 09:47 Eos # (Auto) 0.2 10^3/uL (0.0-0.8) 04/01/24 09:47 Baso # (Auto) 0.1 10^3/uL (0.0-0.1) 04/01/24 09:47 Nucleated RBC % (auto) 0 % 04/01/24 09:47 Nucleated RBCs # 0.0 /100WBC 04/01/24 09:47 Sodium 135 mmol/L (136-145) L 03/31/24 08:06 Potassium 4.4 mmol/L (3.5-5.1) 03/31/24 08:06 Chloride 102 mmol/L (98-107) 03/31/24 08:06 Carbon Dioxide 22 mmol/L (22-29) 03/31/24 08:06 Anion Gap 15.4 (5-19) 03/31/24 08:06 BUN 15 mg/dL (6-20) 03/31/24 08:06 Creatinine 0.6 mg/dL (0.7-1.2) L 03/31/24 08:06 GFR Calculation 155.2 mL/min (90-130) H 03/31/24 08:06 Glucose 170 mg/dL (65-115) H 03/31/24 08:06 Calculated Osmolality 285 mOsm/kg (285-295) 03/31/24 08:06 Lactic Acid 0.8 mmol/L (0.5-2.2) 03/30/24 14:41 Calcium 8.3 mg/dL (8.5-10.5) L 03/31/24 08:06 Total Bilirubin 0.8 mg/dL (0.15-1.2) 03/30/24 14:41 AST 9 U/L (0-40) 03/30/24 14:41 ALT 17 U/L (0-41) 03/30/24 14:41 Alkaline Phosphatase 68 U/L (40-130) 03/30/24 14:41 C-Reactive Protein 143.0 mg/L (0.0-4.9) H 03/30/24 14:41 Total Protein 7.5 g/dL (6.6-8.7) 03/30/24 14:41 Albumin 3.9 g/dL (3.5-5.2) 03/30/24 14:41 Globulin 3.6 g/dL (1.3-4.6) 03/30/24 14:41 Urine Color Yellow (Yellow) 03/30/24 17:46 Urine Appearance Clear (CLEAR) 03/30/24 17:46 Urine pH 6.0 (5-7) 03/30/24 17:46 Ur Specific [place] 1.047 (1.005-1.030) H 03/30/24 17:46 Urine Protein Trace (Negative) A 03/30/24 17:46 Urine Glucose (UA) Negative (Normal) 03/30/24 17:46 Urine Ketones Negative (Negative) 03/30/24 17:46 Urine Blood Negative (Negative) 03/30/24 17:46 Urine Nitrate Negative (Negative) 03/30/24 17:46 Urine Bilirubin Negative (Negative) 03/30/24 17:46 Urine Urobilinogen 1.0 mg/dL (Negative) 03/30/24 17:46 Ur Leukocyte Esterase Negative (Negative) 03/30/24 17:46 Urine RBC 0-2 /hpf (0-2) 03/30/24 17:46 Urine WBC 0-5 /hpf (0-5) 03/30/24 17:46 Ur Squamous Epith Cells 0-5 /hpf (0-5) 03/30/24 17:46 Amorphous Sediment Not Reportable 03/30/24 17:46 Urine Bacteria None seen /hpf (NONE) 03/30/24 17:46 Hyaline Casts 0-4 /lpf H 03/30/24 17:46 Procedures Performed Exam under anesthesia of the rectum and perineum, incision and drainage of perianal abscess. Vitals Last Vital Signs Temp 98.6 F 04/01/24 11:16 Pulse 84 04/01/24 11:16 Resp 18 04/01/24 11:16 BP 144/75 04/01/24 11:16 Pulse Ox 95 04/01/24 11:16 O2 Del Method Room Air 04/01/24 11:16 O2 Flow Rate 4 03/30/24 21:46 Discharge Plan Discharge Patient Disposition: Home Condition: Stable Prescriptions: New amoxicillin-pot clavulanate [Augmentin] 500-125 mg tablet 1 tab PO Q12H 5 Days Qty: 10 0RF ibuprofen 400 mg tablet 800 mg PO Q6H PRN (Reason: pain) 5 Days Qty: 2 0RF Continued lisinopril-hydrochlorothiazide 10-12.5 mg tablet 1 tab PO DAILY escitalopram oxalate 10 mg tablet 10 mg PO DAILY Anucort-HC 25 mg suppository 25 mg NE Discharge Orders: Discharge Order (Routine); Ordered 04/01/24 Ordered By: North Ling Referrals: [facility] [Other] Geronimo Razo DO [Primary Care Provider] - North Ling MD [Physician] - Discharge Diet: Usual diet Discharge Activity: Resume usual activity Patient Instructions: Acute Wound Care (DC), Opioid Safety, Post Anesthesia Care Activity Restrictions/Additional Instructions: Daily sitz baths Follow-up in general surgery clinic in 2 weeks. Call office to schedule appointment. Discharge Attestations Time Spent in Discharge Care*: greater than 30 min Quality Metrics Clinical Quality Measures [ No reported AMI, CVA or VTE this stay] Coding Level of Care Code Acute Code for Chg Fwd Diagnoses Abscess, perianal K61.0 Time Spent (min) 45
[2024-04-01 13:22] VITALS: BP 144/75; PULSE 84; RESP 18; TEMP 37; O2SAT 95
--- NOTE | 2024-04-05 19:29 | W.PM.BPONFUL ---
Pathology: Perianal abscess Anesthesia: MAC Complications: None Brief history/preop diagnosis: 34 yo male who presented with a left perianal abscess. He was taken to the OR for EUA of the rectum, I&D of perianal abscess, possible seton placement, possible fistulotomy. Full operative report: After explaining the risks and benefits, the patient was consented for EUA of rectum, possible I&D of perianal abscess, possible seton placement, possible fistulotomy. SCDs were applied. MAC was administered. The patient was placed in left lateral decubitus. The perianal abscess was identified and it was incised at the area of maximal fluctuance. Loculations were breaken up using a hemostat. Approximately 50cc of purulent fluid was evacuated. The cavity was [id number] in dimensions. I then introduced a khalil retractor in the rectum and proceeded to look for a fistula. None was identified. I did not identify any other abnormalities. I then proceeded to copiously irrigate the cavity and packed it using 1/2 inch iodophore. The patient was woken up from anesthesia without any complications. Condition: Stable Dispostion: Floor
== END 2024-04-01 13:23 | disposition home or self-care (01) | DRG 348 ==
LOC: ER 16:44 → MEDSURG 16:57
PROVIDERS: Emergency Medicine; Admitting Provider Student in an Organized Health Care Education/Training Program; Emergency Provider Physician Assistant; PCP Family Medicine; Visit Provider Student in an Organized Health Care Education/Training Program
PROC: 0D9Q0ZZ Drainage of Anus, Open Approach (ICD-10-PCS; CPT 46040; principal; 2024-03-30 19:00)
DX: K61.0 Anal abscess (principal); Z68.42 Body mass index [BMI] 45.0-49.9, adult; E66.01 Morbid (severe) obesity due to excess calories
CPT/HCPCS: 36415; 74177; 80048; 80053; 81003; 81015; 83605; 85025; 86140; 87040; 87070; 87075; 87077; 87186; 87205; 96365; 96375; 99285; J0330; J1100; J1885; J2270; J2405; J2543; J2704; J3010; J7030; J7120; Q9967

== ENCOUNTER → 2024-04-12 09:27 | Outpatient (BNVA) | payer OTHER, SELFPAY | PROVIDERS: PCP Nurse Practitioner; Visit Provider Nurse Practitioner | DX: K61.0 Anal abscess (principal) | CPT/HCPCS: 85025 ==

== ENCOUNTER → 2024-04-18 09:52 | Outpatient (BNVA) | payer OTHER, SELFPAY | PROVIDERS: PCP Nurse Practitioner; Visit Provider Nurse Practitioner Family | DX: S99.811A Other specified injuries of right ankle, initial encounter (principal); W18.43XA Slipping, tripping and stumbling without falling due to stepping from one level to another, initial encounter | CPT/HCPCS: 73610 ==

== ENCOUNTER → 2024-06-06 14:53 | Outpatient (BNVA) | payer OTHER, SELFPAY | PROVIDERS: PCP Nurse Practitioner; Visit Provider Nurse Practitioner | DX: K61.0 Anal abscess (principal); R73.9 Hyperglycemia, unspecified | CPT/HCPCS: 80053; 83036; 85025 ==